=== PATIENT | male | born 1950 | race African-American/Black ===

== ENCOUNTER 2022-11-05 14:56 | Emergency (ER) | payer BC, OTHER ==
--- NOTE | 2022-11-05 16:45 | RAD REPORT ---
EXAM DESCRIPTION: CT - Head Brain Wo Cont - 11/05/2022 4:29 pm CLINICAL HISTORY: dysarthria COMPARISON: No comparisons TECHNIQUE: All CT scans are performed using dose optimization technique as appropriate and may inclu de automated exposure control or mA/KV adjustment according to patient size. FINDINGS: No intracranial hemorrhage, hydrocephalus or extra-axial fluid collection.No areas of brai n edema or evidence of midline shift. Chronic small vessel ischemic changes. The paranasal sinuses and mastoids are clear. The calvarium is intact. IMPRESSION: No acute intracranial abnormality.
--- NOTE | 2022-11-05 16:46 | RAD REPORT ---
EXAM DESCRIPTION: RAD - Chest Single View - 11/05/2022 4:36 pm CLINICAL HISTORY: DYSPNEA COMPARISON: No comparisons FINDINGS: Lines: None. Lungs: No evidence of edema or pneumonia. Pleural: No significant pleural effusions or pneumothorax. Cardiac: The heart size is within normal limits. Mediastinum: Within normal limits. Bones: No acute fractures. Other: None IMPRESSION: No acute cardiopulmonary disease.
[2022-11-05 17:23] LABS: Absolute Lymphocytes (CBC) 3.4 K/uL (0.7-4.9); Hematocrit 45.9 % (39.6-49.0); Lymphocytes % 46.5 % (15.3-44.8); MCV 95.9 fL (80-100); MPV 7.7 fL (7.6-11.3); RBC Red Blood Cell Count 4.79 M/uL (4.33-5.43)
[2022-11-05 17:41] LABS: ALT/SGPT 25 U/L (16-61); AST/SGOT 24 U/L (15-37); Albumin 3.9 g/dL (3.4-5.0); Alkaline Phosphatase 97 U/L (45-117); BUN Blood Urea Nitrogen 15 mg/dL (7-18); Bicarbonate 27 mEq/L (21-32); Bilirubin Total 0.3 mg/dL (0.2-1.0); Glomerular Filtration Rate 57 ml/min (=/>90); Glucose Level 94 mg/dL (74-106); NT PRO-BNP 10 pg/mL (<125); Potassium 3.7 mEq/L (3.5-5.1); Sodium Level 136 mEq/L (136-145); Troponin High Sensitivity 9.6 pg/mL (<58.9)
--- NOTE | 2022-11-05 17:44 | RAD REPORT ---
EXAM DESCRIPTION: US - Extrem Venous W Compress Lloyd - 11/05/2022 5:38 pm CLINICAL HISTORY: PAIN COMPARISON: No comparisons TECHNIQUE: Real-time sonographic evaluation of the lower extremity deep venous systems was performed using color Doppler, grayscale, and compression. FINDINGS: Bilateral lower extremities. Normal compressibility, flow augmentation, phasic flow and spontaneous flow is identified in both the left and right lower extremity deep venous systems. No intraluminal filling defects seen. IMPRESSION: No DVT in either lower extremity.
[2022-11-05 18:15] LABS: Bilirubin Direct < 0.1 mg/dL (0-0.2); Bilirubin Indirect, Calculated ND mg/dL (0.2-0.8)
[2022-11-05] MEDS ORDERED: NA CHLORIDE 0.9% 1,000 ML ONE (18:59)
--- NOTE | 2022-11-05 19:44 | RAD REPORT ---
EXAM DESCRIPTION: CT - Head angio - 11/05/2022 7:26 pm CLINICAL HISTORY: SLURRED SPEECH COMPARISON: Head Brain Wo Cont dated 11/05/2022 TECHNIQUE: CT angiography of the head was performed with maximum intensity reformatted images. All CT scans are performed using dose optimization technique as appropriate and may include automated exposure control or mA/KV adjustment according to patient size. FINDINGS: Anterior circulation: Intracranial calcified plaque. No aneurysm or large vessel occlusion. No hemodynamically significant stenosis. No arteriovenous malformation identified. Posterior circulation: No aneurysm or large vessel occlusion. No hemodynamically significant stenosis. No arteriovenous malf ormation identified. IMPRESSION: No significant flow abnormality is detected.
--- NOTE | 2022-11-05 19:49 | RAD REPORT ---
EXAM DESCRIPTION: CT - Neck Angio - 11/05/2022 7:27 pm CLINICAL HISTORY: slurred speech COMPARISON: No comparisons TECHNIQUE: CT angiography of the neck vessels was performed with maximum intensity reformatted image s. CAROTID STENOSIS REFERENCE USING NASCET CRITERIA: Mild - <50% stenosis. Moderate - 50-69% stenosis. Severe - 70-94% stenosis. Near occlusion - 95-99% stenosis. Occluded - 100% stenosis. 3D maximum intensity pixel (MIP) reconstructions were created All CT scans are performed using dose optimization technique as appropriate and may include automated exposure control or mA/KV adjustment according to patient size. FINDINGS: A left aortic arch is identified with normal three vessel configuration of the great vesse ls. No significant flow abnormality is seen of the common carotid bilaterally. No significant stenosis is identified involving the cervical segments of both internal carotid arteri es. Mixed calcified and noncalcified plaque is present in both carotid bulbs. Stenoses are mild (less than 50%). Normal flow is seen within both vertebral arteries. IMPRESSION: No significant flow abnormality of the neck vessels is identified.
[2022-11-05] MEDS ORDERED: ASPIRIN EC 81 MG TAB PO ONE (20:00)
[2022-11-05] MEDS ORDERED: NA CHLORIDE 0.9% 50 ML ONE (20:01)
[2022-11-05] MEDS ORDERED: FOLIC ACID 5 MG/ML VIAL ONE (20:01)
--- NOTE | 2022-11-05 20:11 | ER ---
Nurse's Notes [facility] Name: Floyd Verdin Age: 72 yrs Sex: Male : 1950 Arrival Date: 11/05/2022 Time: 14:56 Bed 19 Private MD: Diagnosis: Slurred speech-resolved Presentation: 11/05 15:08 Chief complaint: Patient states: slurred speech onset . Pt denies any weakness, cm10 headache. Pt able to ambulate with steady gait. Coronavirus screen: Vaccine status: Patient reports receiving the 2nd dose of the covid vaccine. Ebola Screen: Patient denies travel to an Ebola-affected area in the 21 days before illness onset. No symptoms or risks identified at this time. 15:08 Method Of Arrival: Ambulatory cm10 15:09 Initial Sepsis Screen: Does the patient meet any 2 criteria? No. Patient's initial cm10 sepsis screen is negative. Does the patient have a suspected source of infection? No. Patient's initial sepsis screen is negative. Risk Assessment: Do you want to hurt yourself or someone else? Patient reports no desire to harm self or others. Onset of symptoms was November 01, 2022. 15:09 Acuity: MONICA 3 cm10 Triage Assessment: 15:10 General: Appears in no apparent distress. comfortable, Behavior is calm, cooperative. cm10 Pain: Denies pain. Neuro: No deficits noted. Level of Consciousness is awake, alert, obeys commands, Oriented to person, place, time, situation, Healthcare Consulting Manager are equal bilaterally Moves all extremities. Gait is steady, Speech is normal, Facial symmetry appears normal. Respiratory: No deficits noted. Airway is patent Respiratory effort is even, unlabored, Respiratory pattern is regular, symmetrical. Historical: - Allergies: 15:10 No Known Allergies; cm10 - PMHx: 15:10 Diabetes mellitus; Hypertensive disorder; high cholesterol; cm10 - Immunization history:: Adult Immunizations unknown. - Social history:: Smoking status: Patient reports the use of cigarette tobacco products, smokes one pack cigarettes per day. - Family history:: not pertinent. Screenin:[facility] ED Fall Risk Assessment (Adult) Score/Fall Risk Level 0 - 2 = Low Risk. Abuse eh3 screen: Denies threats or abuse. Denies injuries from another. Nutritional screening: No deficits noted. Tuberculosis screening: No symptoms or risk factors identified. Assessment: 19:48 General: Appears in no apparent distress. comfortable, Behavior is calm, cooperative, eh3 appropriate for age. Pain: Denies pain. Neuro: Level of Consciousness is awake, alert, obeys commands, Oriented to person, place, time, situation. Cardiovascular: Capillary refill < 3 seconds Patient's skin is warm and dry. Respiratory: Airway is patent Respiratory effort is even, unlabored, Respiratory pattern is regular, symmetrical. GI: Abdomen is round non-distended. Derm: Skin is healthy with good turgor, Skin is pink, warm \T\ dry. Musculoskeletal: Circulation, motion, and sensation intact. 20:30 Reassessment: Patient appears in no apparent distress at this time. Patient and/or 3 family updated on plan of care and expected duration. Pain level reassessed. Patient is alert, oriented x 3, equal unlabored respirations, skin warm/dry/pink. 21:11 Reassessment: Patient is alert, oriented x 3, equal unlabored respirations, skin cm10 warm/dry/pink. Assumed care of patient at this time. Pt currently A\T\Ox4, respirations even and unlabored. updated patient on plan of care. Pt currently eating. Patient states symptoms have improved. 23:02 Reassessment: Patient and/or family updated on plan of care and expected duration. Pain cm10 level reassessed. Patient is alert, oriented x 3, equal unlabored respirations, skin warm/dry/pink. Patient states feeling better. Patient states symptoms have improved. 23:07 Reassessment: Attempting to give report and unable to at this time due to the transfer [facility] 23:54 Reassessment: [facility] at bedside. Report given. Pt stable for transport at [facility] this time. Vital Signs: 15:08 BP 155 / 84; Pulse 86; Resp 18; Temp 98.5; Pulse Ox 99% ; Weight 87.54 kg; Height 5 ft. cm10 7 in. ; Pain 0/10; 19:48 BP 156 / 102; Pulse 69; Resp 18; Pulse Ox 98% on R/A; eh3 20:30 BP 147 / 87; Pulse 72; Resp 18; Pulse Ox 97% on R/A; eh3 21:34 BP 157 / 69; cm10 23:00 BP 136 / 60; Pulse 66; Resp 18; Pulse Ox 97% ; cm10 15:08 Body Mass Index 30.23 (87.54 kg, 170.18 cm) cm10 15:08 Pain Scale: Adult cm10 ED Course: 14:58 Patient arrived in ED. mg5 15:10 Triage completed. cm10 15:10 Arm band placed on Patient placed in waiting room. cm10 15:14 Prasanna Duff MD is Attending Physician. rt 16:31 CT Head Brain wo Cont In Process Unspecified. EDMS 16:37 XRAY Chest (1 view) In Process Unspecified. EDMS 17:07 Initial lab(s) drawn, by me, sent to lab. iw 17:40 US Extremity Venous W Compression Lloyd In Process Unspecified. EDMS 17:49 Owen Griffin PA is PHCP. cp 19:27 Note: 22 diff placed in left forearm for CT. ls3 19:28 CT Head Angio In Process Unspecified. EDMS 19:28 CT Neck Angio In Process Unspecified. EDMS 19:48 Tiffanie Keith, JENAE is Primary Nurse. eh3 19:48 Patient has correct armband on for positive identification. Bed in low position. Call eh3 light in reach. Side rails up X2. Adult w/ patient. Provided Education on: Use of call pelaez. Client placed on continuous cardiac and pulse oximetry monitoring. NIBP monitoring applied. 20:53 Connected with [facility] at the [place]. Advised to fax clinicals. mb4 21:02 faxed clinical documentation to the [place]. mb4 21:05 Report given to JENAE Anglin. 3 21:21 Assisted to bathroom. mb4 22:07 Patient accepted at the [place] by Teresa at [id number]. mb4 22:25 [facility] called to advise Dr. Ramírez needed to confirm neurology bed and she would call back [facility] with an answer. 23:15 [facility] advised to continue transfer. mb4 23:27 Report given to Mary at [facility]. cm10 23:37 [facility] contacted for transfer. mb4 23:54 No provider procedures requiring assistance completed. Patient transferred, IV remains cm10 in place. Administered Medications: 19:50 Drug: Aspirin PO 81 mg Route: PO; eh3 21:05 Follow up: Response: No adverse reaction 3 19:50 Drug: foLIC Acid IVPB 1 mg Route: IVPB; Site: left forearm; eh3 21:05 Follow up: Response: No adverse reaction; IV Status: Completed infusion; IV Intake: [id number] Medication: 23:55 VIS not applicable for this client. cm10 Intake: 21:05 IV: 50ml; Total: 50ml. eh3 Outcome: 20:09 ER care complete, transfer ordered by . cp 23:54 Transferred by ground EMS [facility]. to [facility] cm10 Transfer form completed. X-rays sent w/ patient. Note: Katherin. 23:54 Condition: stable 23:54 Instructed on the need for transfer. 23:59 Patient left the ED. cm10 Signatures: Dispatcher [employer] EDMS Fern Waterman RN RN iw Owen Griffin PA PA cp Yuliya Torres mb4 Yoshi Delgado ls3 Tiffanie Keith RN RN eh3 Prasanna Duff MD MD rt Linnette Kemp RN RN cm10 Kailey Smith mg5 Corrections: (The following items were deleted from the chart) 20:03 17:55 foLIC Acid IVPB 1 mg IVPB in left forearm eh3 eh3
--- NOTE | 2022-11-05 20:11 | EDPHYS ---
Physician Documentation [facility] Name: Floyd Verdin Age: 72 yrs Sex: Male : 1950 Arrival Date: 11/05/2022 Time: 14:56 Bed 19 Private MD: ED Physician Prasanna Duff HPI: 11/05 17:43 This 72 yrs old Black Male presents to ER via Ambulatory with complaints of Slurred rt Speech, Moving Slow. 17:44 Patient presents to the ED with slurred speech and mumbled speech that occurred on rt . This did resolve spontaneously after about 15 minutes. Patient was seen by paramedics, refused transfer at that time. The patient stated that he developed a bilateral leg pain behind the knees today. Was worse on the right compared to the left. Denies any injury. Denies other complaints at this time. Symptoms are moderate severity, no other aggravating or alleviating factors.. Historical: - Allergies: 15:10 No Known Allergies; cm10 - PMHx: 15:10 Diabetes mellitus; Hypertensive disorder; high cholesterol; cm10 - Immunization history:: Adult Immunizations unknown. - Social history:: Smoking status: Patient reports the use of cigarette tobacco products, smokes one pack cigarettes per day. - Family history:: not pertinent. ROS: 17:44 Constitutional: Negative for fever, chills, and weight loss, Cardiovascular: Negative rt for chest pain, palpitations, and edema, Respiratory: Negative for shortness of breath, cough, wheezing, and pleuritic chest pain, Abdomen/GI: Negative for abdominal pain, nausea, vomiting, diarrhea, and constipation, MS/Extremity: Negative for injury and deformity, Skin: Negative for injury, rash, and discoloration, Psych: Negative for depression, anxiety, suicide ideation, homicidal ideation, and hallucinations. 17:44 MS/extremity: Positive for pain, Negative for injury or acute deformity. 17:44 Neuro: Positive for speech changes, Negative for altered mental status. Exam: 17:44 Constitutional: This is a well developed, well nourished patient who is awake, alert, rt and in no acute distress. Head/Face: Normocephalic, atraumatic. Chest/axilla: Normal chest wall appearance and motion. Nontender with no deformity. No lesions are appreciated. Cardiovascular: Regular rate and rhythm with a normal S1 and S2. No gallops, murmurs, or rubs. Normal PMI, no JVD. No pulse deficits. Respiratory: Lungs have equal breath sounds bilaterally, clear to auscultation and percussion. No rales, rhonchi or wheezes noted. No increased work of breathing, no retractions or nasal flaring. Abdomen/GI: Soft, non-tender, with normal bowel sounds. No distension or tympany. No guarding or rebound. No evidence of tenderness throughout. Skin: Warm, dry with normal turgor. Normal color with no rashes, no lesions, and no evidence of cellulitis. MS/ Extremity: Pulses equal, no cyanosis. Neurovascular intact. Full, normal range of motion. Neuro: Awake and alert, GCS 15, oriented to person, place, time, and situation. Cranial nerves II-XII grossly intact. Motor strength 5/5 in all extremities. Sensory grossly intact. Cerebellar exam normal. Normal gait. Psych: Awake, alert, with orientation to person, place and time. Behavior, mood, and affect are within normal limits. 20:06 ECG was reviewed by the Attending Physician. Vital Signs: 15:08 BP 155 / 84; Pulse 86; Resp 18; Temp 98.5; Pulse Ox 99% ; Weight 87.54 kg; Height 5 ft. cm10 7 in. ; Pain 0/10; 19:48 BP 156 / 102; Pulse 69; Resp 18; Pulse Ox 98% on R/A; eh3 20:30 BP 147 / 87; Pulse 72; Resp 18; Pulse Ox 97% on R/A; eh3 21:34 BP 157 / 69; cm10 23:00 BP 136 / 60; Pulse 66; Resp 18; Pulse Ox 97% ; cm10 15:08 Body Mass Index 30.23 (87.54 kg, 170.18 cm) cm10 15:08 Pain Scale: Adult cm10 MDM: 16:08 Patient medically screened. rt 20:05 Data reviewed: vital signs, nurses notes, lab test result(s), EKG, radiologic studies, cp CT scan, plain films. 20:05 I considered the following discharge prescriptions or medication management in the emergency department Medications were administered in the Emergency Department. See MAR. Independent interpretation of the following test(s) in the Emergency Department EKG: See my EKG interpretation above. Test considered but Not performed: MRI: brain. Care significantly affected by the following chronic conditions: Diabetes, Hypertension. 20:15 Counseling: I had a detailed discussion with the patient and/or guardian regarding: the cp historical points, exam findings, and any diagnostic results supporting the discharge/admit diagnosis, lab results, radiology results, the need to transfer to another facility, due [facility]. 22:05 ED course: consult with DR Ramírez, ED physician \T\[facility]. 11/05 16:17 Order name: Basic Metabolic Panel; Complete Time: 18:16 rt 11/05 18:59 Interpretation: Normal except: CRE 1.32; GFR 57. 11/05 16:17 Order name: CBC with Diff; Complete Time: 17:43 rt 11/05 18:59 Interpretation: Normal except: LYM% 46.5. 11/05 16:17 Order name: LFT's; Complete Time: 18:16 rt 11/05 16:17 Order name: Magnesium; Complete Time: 18:16 rt 11/05 16:17 Order name: NT PRO-BNP; Complete Time: 18:16 rt 11/05 16:17 Order name: Troponin HS; Complete Time: 18:16 rt 11/05 16:17 Order name: XRAY Chest (1 view); Complete Time: 16:58 rt 11/05 16:17 Order name: CT Head Brain wo Cont; Complete Time: 16:58 rt 11/05 16:17 Order name: US Extremity Venous W Compression Lloyd; Complete Time: 17:50 rt 11/05 19:00 Order name: CT Head Angio; Complete Time: 20:00 11/05 19:00 Order name: CT Neck Angio; Complete Time: 20:00 11/05 16:17 Order name: EKG; Complete Time: 16:17 rt 11/05 16:17 Order name: Cardiac monitoring; Complete Time: 19:48 rt 11/05 16:17 Order name: EKG - Nurse/Tech; Complete Time: 20:04 rt 11/05 16:17 Order name: IV Saline Lock; Complete Time: 19:48 rt 11/05 16:17 Order name: Labs collected and sent; Complete Time: 17:28 rt 11/05 16:17 Order name: O2 Per Protocol; Complete Time: 19:48 rt 11/05 16:17 Order name: O2 Sat Monitoring; Complete Time: 19:48 rt EC:06 Rate is 69 beats/min. Rhythm is regular. NC interval is normal. QRS interval is normal. cp QT interval is normal. T waves are Inverted in lead aVR. Interpreted by me. Reviewed by me. Administered Medications: 19:50 Drug: Aspirin PO 81 mg Route: PO; 3 21:05 Follow up: Response: No adverse reaction [facility] 19:50 Drug: foLIC Acid IVPB 1 mg Route: IVPB; Site: left forearm; 3 21:05 Follow up: Response: No adverse reaction; IV Status: Completed infusion; IV Intake: [id number] Disposition Summary: 11/05/22 20:09 Transfer Ordered Transfer Location[facility] cp Reason: Higher level of care cp Condition: Stable cp Problem: new cp Symptoms: have improved cp Accepting Physician: DR Ramírez(11/05/22 23:59) cm10 Diagnosis - Slurred speech - resolved(11/05/22 22:06) cp Discharge Instructions: - Discharge Summary Sheet 3 Forms: - Medication Reconciliation Form cp - SBAR form 3 Signatures: Dispatcher [employer] EDMS Jorge Luis Schumacher, ARCHITECT IN TRAINING-C ARCHITECT IN TRAINING-Cla1 Owen Griffin PA PA cp Tiffanie Keith, JENAE RN 3 Prasanna Duff MD MD rt Linnette Kemp RN RN 10 Corrections: (The following items were deleted from the chart) 22:06 20:09 Doctor cp cp 22:06 20:09 Slurred speech cp cp 22:06 22:06 DR Ramírez cp cp 23:59 22:06 DR Ramírez cp cm10
[2022-11-06 00:29] VITALS: TEMP 98.5
[2022-11-06 00:32] VITALS: O2SAT 97
[2022-11-06 00:34] VITALS: BP 136/60
--- NOTE | 2022-11-07 17:40 | EKG ---
Test Date: 2022-11-05 Test Time: 20:01:47 Network Firewall Engineer: ADELA MEASUREMENT RESULTS: Intervals: Rate: 69 IA: 174 QRSD: 96 QT: 418 QTc: 447 [place]: P: 55 IA: 174 QRS: 19 T: 9 INTERPRETIVE STATEMENTS: Normal sinus rhythm with sinus arrhythmia Normal ECG No previous ECG available for comparison Electronically Signed On 11-07-22 17:35:21 CDT by Jostin Lanier
== END 2022-11-05 23:59 ==
LOC: ER 14:56
DX: R47.81 Slurred speech (principal); I10 Essential (primary) hypertension; E11.9 Type 2 diabetes mellitus without complications; F17.210 Nicotine dependence, cigarettes, uncomplicated
CPT/HCPCS: 96365; 93005; 85025; 80048; 36415; 83735; 80076; 84484; 83880; 70450; 70496; 70498; 71045; 93970; 99285; Q9967; J7030